=== PATIENT | male | born 1960 | race Caucasian/White ===

== ENCOUNTER 2019-11-19 11:29 | Emergency (ER) | payer SELFPAY ==
[~2019-11-19] VITALS: Ht 177.8 cm; Wt 68.4 kg
--- NOTE | 2019-11-19 12:26 | NUR ---
PT STATES HE'S VERY STRESSFUL, GETTING UPSET W/ PEOPLE "AND TAKING IT OUT ON THEM" - VERBALLY. PT STATES HE WAS LAID OFF IN JUNE, DEALING W/ UNEMPLOYEMENT. HASN'T SEEN A COUNSELOR, RECENTLY
--- NOTE | 2019-11-19 12:55 | NUR ---
DR GALE AT
[2019-11-19 13:20] LABS: BASOPHILS # (AUTO) 0.03 x10^3/uL (0-0.1); BASOPHILS % (AUTO) 1 % (0-1); EOSINOPHILS # (AUTO) 0.07 x10^3/uL (0-0.4); EOSINOPHILS % (AUTO) 2 % (1-7); LYMPHOCYTES # (AUTO) 1.34 x10^3/uL (1-3.4); LYMPHOCYTES % (AUTO) 34 % (22-44); MD NO; MEAN CORPUSCULAR HEMOGLOBIN 33.6 pg (27.5-34.5); MEAN CORPUSCULAR HGB CONC 33.6 g/dL (33.2-36.2); MEAN CORPUSCULAR VOLUME 99.9 fL (81-97); MEAN PLATELET VOLUME 7.6 fL (7.4-10.4); MONOCYTES # (AUTO) 0.32 x10^3/uL (0.2-0.8); MONOCYTES % (AUTO) 8 % (2-9); NEUTROPHILS # (AUTO) 2.15 x10^3/uL (1.8-6.8); NEUTROPHILS % (AUTO) 55 % (42-75); PLATELET COUNT 168 x10^3/uL (130-400); RED BLOOD COUNT 4.44 x10^6/uL (4.38-5.82); RED CELL DISTRIBUTION WIDTH 12.7 % (9.4-14.8)
[2019-11-19 13:26] LABS: ALBUMIN 3.8 g/dL (3.4-5.0); ANION GAP 4 mmol/L (5-15); CALCIUM 8.5 mg/dL (8.5-10.1); CHLORIDE 111 mmol/L (98-107); CREATININE 0.88 mg/dL (0.7-1.3)
--- NOTE | 2019-11-19 13:30 | NUR ---
ATARAX GIVEN PER EMAR. PT SITTING QUIETLY ON GURNEY, WATCHING TV. CALL LIGHT W/IN REACH
[2019-11-19 14:02] VITALS: BP 117/79
== END 2019-11-19 14:11 | disposition home or self-care (01) ==
LOC: ED 14:00
DX: F41.1 Generalized anxiety disorder (principal); F17.290 Nicotine dependence, other tobacco product, uncomplicated
CPT/HCPCS: 36415; 80048; 82040; 85025; 99283; Q0177